=== PATIENT | female | born 1985 | race Caucasian/White ===

== ENCOUNTER 2017-07-02 13:22 | Emergency (ER) | payer MEDICAID, OTHER ==
[~2017-07-02] VITALS: Wt 44.5 kg
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
[2017-07-02] MEDS ORDERED: SOD CHLORIDE 0.9% 1,000 ML IV ONE (15:00)
[2017-07-02 15:15] LABS: BASOPHILS % 0.5 % (0.0-2.0); HEMATOCRIT 35.3 % (37.0-47.0); HEMOGLOBIN 11.7 g/dl (12.0-16.0); LYMPHOCYTES # 1.4 10^3/ul (0.8-2.9); LYMPHOCYTES % 18.9 % (15.0-51.0); MEAN CORPUSCULAR HEMOGLOBIN 30.2 pg (29.0-33.0); MEAN CORPUSCULAR HGB CONC 33.1 g/dl (32.0-37.0); MEAN PLATELET VOLUME 8.7 fl (7.4-10.4); MONOCYTE # 0.7 10^3/ul (0.3-0.9); MONOCYTES % 9.6 % (0.0-11.0); NEUTROPHIL # 5.4 10^3/ul (1.6-7.5); NEUTROPHILS % 70.9 % (39.0-77.0); PLATELET COUNT 325 10^3/UL (140-415); RED BLOOD COUNT 3.88 10^6/ul (4.20-5.40); RED CELL DISTRIBUTION WIDTH 17.2 % (11.5-14.5); WHITE BLOOD COUNT 7.6 10^3/ul (4.8-10.8)
[2017-07-02 15:24] LABS: URINE BLOOD (Dip) POC Trace-intact (NEGATIVE)
[2017-07-02 15:31] LABS: ALBUMIN 4.9 g/dl (3.3-4.9); ALBUMIN/GLOBULIN RATIO 1.4; BILIRUBIN,INDIRECT 0.9 mg/dl (0-1.1); BILIRUBIN,TOTAL 0.9 mg/dl (0.2-1.3); CALCIUM 10.3 mg/dl (8.4-10.2); CREATININE 0.69 mg/dl (0.44-1.00); POTASSIUM 3.9 mmol/L (3.5-5.1); TOTAL PROTEIN 8.4 g/dl (6.1-8.1)
[2017-07-02] MEDS ORDERED: KETOROLAC 30 MG INJ IV STA (15:31)
[2017-07-02] MEDS ORDERED: ONDANSETRON 4 MG INJ IV STA ×2 (15:31→19:09)
[2017-07-02] MEDS ORDERED: morphine 4 MG/ML VIAL IV STA ×2 (15:56→20:17)
--- NOTE | 2017-07-02 16:14 | RADRPT ---
PROCEDURE: XR Chest. CLINICAL INDICATION: Chest pain TECHNIQUE: Single portable view of the chest was obtained. COMPARISON: None. FINDINGS: Cardiac/vascular structures: Normal cardiomediastinal silhouette. Pulmonary: Lungs are clear. No pleural effusion. No evidence of pneumothorax. Osseous structures: Normal Soft tissues: Normal IMPRESSION: No acute cardiopulmonary disease. RPTAT:AAJJ Physician Libby Date Time Electronically viewed and signed by Sujata Cano Physician on 07/02/2017 16:14 /
[2017-07-02] MEDS ORDERED: CEFTRIAXONE 1 GM/50 ML (PMX) 50 ML IVPB ONE (16:30)
[2017-07-02 16:56] LABS: BARBITURATES Negative (NEGATIVE); BENZODIAZEPINES Positive (NEGATIVE); CANNABINOIDS Positive (NEGATIVE); COCAINE Negative (NEGATIVE); OPIATES Negative (NEGATIVE)
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
[2017-07-02] MEDS ORDERED: DIPHENHYDRAMINE 50 MG INJ IV ONE ×2 (18:30→22:30)
[2017-07-02] MEDS ORDERED: METOCLOPRAMIDE 10 MG INJ IV ONE (20:30)
[2017-07-02] MEDS ORDERED: IOHEXOL 300MG/ML 150 ML BTL ONE (21:04)
[2017-07-02] MEDS ORDERED: SOD CHLORIDE 0.9% 100 ML ONE (21:04)
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
[2017-07-03] MEDS ORDERED: ACET-141 PO (00:36)
[2017-07-03] MEDS ORDERED: ASCO500C7 PO (00:36)
[2017-07-03] MEDS ORDERED: HYDROCODONE/APAP (5/325) TAB PO ONE (01:00)
[2017-07-03] MEDS ORDERED: ONDA4TAB11 PO (01:48)
[2017-07-03] MEDS ORDERED: CEPH-443 PO (01:48)
[2017-07-03] MEDS ORDERED: NAPR-688 PO (01:48)
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
[2017-07-03 01:55] VITALS: BP 121/73; PULSE 76; RESP 16; TEMP 98.1
[2017-07-07] MEDS ORDERED: LORA1TAB PO (02:16)
[2017-07-07] MEDS ORDERED: DIPH25CA6 PO (02:39)
[2017-07-07] MEDS ORDERED: IBUP-1542 PO (02:39)
== END 2017-07-03 02:44 | disposition home or self-care (01) ==
LOC: FTE 13:22 → E/R 07-03 02:44
DX: S39.91XA Unspecified injury of abdomen, initial encounter (principal); S09.90XA Unspecified injury of head, initial encounter; R07.9 Chest pain, unspecified; R51 Headache; Y08.89XA Assault by other specified means, initial encounter
CPT/HCPCS: 36415; 70450; 71010; 74177; 80053; 80306; 80307; 81003; 83605; 83690; 85025; 87400; 96374; 96375; 96376; J0696; J1200; J1885; J2270; J2405; J2765; Q9967; Z7502; Z7610